=== PATIENT | male | born 1995 | race Caucasian/White ===

== ENCOUNTER 2018-07-12 09:35 | Emergency (ER) | payer OTHER ==
--- NOTE | 2018-07-12 10:13 | EDPHY ---
H & P Time Seen by Provider: 07/12/18 09:56 HPI/ROS: CHIEF COMPLAINT: Hand injury HISTORY OF PRESENT ILLNESS: Patient is a 23-year-old male who presents emergency department after injuring his hand on 07/06/2018. Patient states that a [employer] box smashed his hand between the box and a railing. He had discomfort in the middle of his left hand. However his symptoms slowly improved. 2 days ago he was playing a twisting movement is hands. He developed pain at this location in his left hand. This is focused over the 3rd metacarpal. His pain is mild to moderate. It is worse with movement and palpation. He denies any numbness or tingling. He has not been seen previously for this injury. REVIEW OF SYSTEMS: 10 systems were reveiwed and are negative with the exception of the elements mentioned in the history of present illness. Past Medical/Surgical History: Includes right knee surgery Social history: Patient does not smoke Smoking Status: Never smoked Physical Exam: Vitals General Appearance: Alert and no distress. Head: Pupils equal. Normal. Respiratory: No respiratory distress. Cardiac: regular rate and rhythm. Left upper extremity: Patient has a small blister at the base of his 3rd finger. Patient states this is work related. Patient has no hand swelling. Discoloration. No finger tenderness. Patient has mild tenderness palpation over his 3rd metacarpal. No tenderness. No forearm or elbow tenderness. Neurovascular intact distally Skin: No rashes or lesions. Neuro: Alert. Normal mood and affect. Constitutional: Initial Vital Signs Temperature (C) 36.6 C 07/12/18 09:42 Heart Rate 75 07/12/18 09:42 Respiratory Rate 16 07/12/18 09:42 Blood Pressure 124/66 H 07/12/18 09:42 O2 Sat (%) 94 07/12/18 09:42 O2 Delivery Mode Room Air Allergies/Adverse Reactions: No Known Allergies Allergy (Verified 07/12/18 09:50) Home Medications: Medication Instructions Recorded NK [No Known Home Meds] 07/12/18 Medical Decision Making - Diagnostics Imaging Results: Imaging Impressions Hand X-Ray 07/12/18 10:09 Impression: No acute osseous findings. ED Course/Re-evaluation: In the emergency department I discussed possible etiologies with the patient. I answered all his questions. An x-ray was left hand was ordered. Left hand x-ray: Refer the dictated report no acute disease. I discussed the results with the patient. I answered all his questions. Patient was given a Velcro splint for comfort. He will follow up with workman' s Comp. He was given warnings prior to leaveing Differential Diagnosis: Differential includes not limited to fracture, stress, contusion, sprain, strain Departure - Departure Disposition: Home, Routine, Self-Care Clinical Impression: Hand pain, left Contusion Qualifiers: Encounter type: initial encounter Contusion area: hand Laterality: left Qualified Code(s): S60.222A - Contusion of left hand, initial encounter Condition: Good Instructions: Contusion in Adults (ED) Additional Instructions: Use your splint for comfort. You been given follow-up with worknay's Comp. You have also been given follow-up information for Orthopedics. Referrals: Sarah Vásquez MD [Medical Doctor] - 5-7 days, if not improved Work Comp Referral [facility] [place] [Outside] - 3-4 days, if not improved
[2018-07-12 11:13] VITALS: BP 137/84
== END 2018-07-12 11:04 | disposition home or self-care (01) ==
LOC: CED 09:35
DX: S60.222A Contusion of left hand, initial encounter (principal); W23.0XXA Caught, crushed, jammed, or pinched between moving objects, initial encounter; Y99.0 Civilian activity done for income or pay
CPT/HCPCS: 73130-PO; 99283-ER; L3984-ER